=== PATIENT | female | born 1955 | race Caucasian/White ===

== ENCOUNTER 2025-06-06 07:07 | Emergency (ER) | payer MEDICARE | END 2025-06-06 08:17 | disposition home or self-care (01) | LOC: LB.ED 07:07 | DX: L24.89 Irritant contact dermatitis due to other agents (principal); I10 Essential (primary) hypertension; E03.9 Hypothyroidism, unspecified; Z91.09 Other allergy status, other than to drugs and biological substances; Z79.890 Hormone replacement therapy; Z79.899 Other long term (current) drug therapy | CPT/HCPCS: 99283 ==